=== PATIENT | female | born 1985 | race African-American/Black ===

== ENCOUNTER 2023-03-30 07:19 | Emergency (ER) | payer MEDICAID ==
[~2023-03-30] VITALS: Ht 170.2 cm; Wt 68.0 kg
[2023-03-30 07:24] VITALS: PULSE 75
[2023-03-30 07:31] VITALS: BP 108/61; RESP 18; TEMP 98.5; O2SAT 100
[2023-03-30] MEDS ORDERED: ACETAMINOPHEN WITH CODEINE 300/30MG TABLET PO ONE (07:45)
[2023-03-30] MEDS ORDERED: TOPUD PO (08:15)
[2023-03-30] MEDS ORDERED: DEXT15SY3 PO (08:15)
== END 2023-03-30 08:54 | disposition home or self-care (01) ==
LOC: ER 07:19
DX: R05.1 Acute cough (principal); M54.9 Dorsalgia, unspecified; Z20.822 Contact with and (suspected) exposure to COVID-19
CPT/HCPCS: 99284; 71045; 87426; C9803